=== PATIENT | male | born 1945 | race Caucasian/White ===

== ENCOUNTER 2020-03-19 22:16 | Emergency (ER) | payer MEDICARE ==
--- NOTE | 2020-03-19 22:28 | EDM.PDOCBH ---
<OfficerMerlin - Last Filed: 03/20/20 00:40> ED HPI GENERAL MEDICAL PROBLEM - General Stated Complaint: MENTAL HEALTH EVAL Time Seen by Provider: 03/19/20 22:21 Source of Information: Reports: Patient, Police, RN Notes Reviewed History Limitations: Reports: Combative/Threatening - History of Present Illness INITIAL COMMENTS - FREE TEXT/NARRATIVE: 74-year-old gentleman presents emergency department today via law enforcement for mental health evaluation. He does admit that he wanted to kill his and he wants to kill himself. Per report from law enforcement he made these threats to his she became scared called law enforcement who then arrived evaluated him on scene felt he was unstable brought him to the emergency department for further evaluation. He is somewhat combative and threatening he does cooperate with the exam but he called me a "ASShole and told me to stop asking stupid fucking questions" - Related Data Allergies Allergy/AdvReac Type Severity Reaction Status Date / Time No Known Allergies Allergy Verified 03/19/20 23:12 Home Meds: Home Meds Apixaban [Eliquis] 5 mg PO BID 03/20/20 [History] Clopidogrel Bisulfate [Clopidogrel] 75 mg PO DAILY 03/20/20 [History] Furosemide 40 mg PO DAILY 03/20/20 [History] Hydrocodone/Acetaminophen [Hydrocodon-Acetaminoph 7.5-325] 1 - 2 tab PO Q4H PRN 03/20/20 [History] Isosorbide Mononitrate [Isosorbide Mononitrate ER] 60 mg PO DAILY 03/20/20 [ History] Nitroglycerin 0.4 mg SL ASDIRECTED PRN 03/20/20 [History] SUMAtriptan [Imitrex] 50 mg PO ASDIRECTED PRN 03/20/20 [History] Tamsulosin HCl 0.4 mg PO BID 03/20/20 [History] amLODIPine Besylate [Amlodipine Besylate] 5 mg PO DAILY 03/20/20 [History] atorvaSTATin Calcium [Atorvastatin Calcium] 40 mg PO BEDTIME 03/20/20 [History] buPROPion HCL [Bupropion Xl] 150 mg PO DAILY 03/20/20 [History] lisinopriL [Lisinopril] 10 mg PO DAILY 03/20/20 [History] traMADol HCl [Tramadol HCl] 50 - 100 mg PO QID PRN 03/20/20 [History] Past Medical History HEENT History: Reports: Cataract, Glaucoma, Macular Degeneration Cardiovascular History: Reports: Afib, CAD, High Cholesterol, Hypertension, [place], PVD, Other (See Below) (anticoagulated) Musculoskeletal History: Reports: Back Pain, Chronic Neurological History: Reports: Migraines, Other (See Below) Social & Family History - Tobacco Use Smoking Status *Q: Current Every Day Smoker ED ROS GENERAL - Review of Systems Review Of Systems: Unable To Obtain Reason Not Obtained: Psychotic unstable ED EXAM, BEHAVIORAL HEALTH - Physical Exam Exam: See Below Exam Limited By: Combative/Threatening General Appearance: Alert, Mild Distress (Current) Respiratory/Chest: No Respiratory Distress, Lungs Clear, Normal Breath Sounds Cardiovascular: Regular Rate, Rhythm, No Murmur Psychiatric: Agitated, Poor Eye Contact, Homicidal Thoughts, Suicidal Plan, Suicidal Thoughts COURSE, BEHAVIORAL HEALTH COMP - Course Vital Signs: Last Vital Signs Temp 96.7 F L 03/19/20 22:46 Pulse 90 03/19/20 22:46 Resp 16 03/19/20 22:46 BP 109/76 03/19/20 22:46 Pulse Ox 96 03/19/20 22:46 Orders, Labs, Meds: Laboratory Tests 03/19/20 03/19/20 03/19/20 Range/Units 22:25 22:38 22:38 WBC 8.5 (4.5-11.0) K/uL RBC 4.19 L (4.30-5.90) M/uL Hgb 14.4 (12.0-15.0) g/dL Hct 41.2 (40.0-54.0) % MCV 98 (80-98) fL MCH 34 H (27-31) pg MCHC 35 (32-36) % Plt Count 233 (150-400) K/uL Neut % (Auto) 70 H (36-66) % Lymph % (Auto) 15 L (24-44) % Sau[place] % (Auto) 13 H (2-6) % Eos % (Auto) 1 L (2-4) % Baso % (Auto) 1 (0-1) % PT (9.5-12.0) sec INR (0.80-1.20) Sodium 135 L (140-148) mmol/L Potassium 3.3 L (3.6-5.2) mmol/L Chloride 100 (100-108) mmol/L Carbon Dioxide 23 (21-32) mmol/L Anion Gap 15.3 H (5.0-14.0) mmol/L BUN 17 (7-18) mg/dL Creatinine 0.9 (0.8-1.3) mg/dL Est Cr Clr Drug Dosing 70.92 mL/min Estimated GFR (MDRD) > 60 (>60) Glucose 101 (74-106) mg/dL Calcium 8.2 L (8.5-10.1) mg/dL Total Bilirubin 0.8 (0.2-1.0) mg/dL AST 51 H (15-37) U/L ALT 47 (12-78) U/L Alkaline Phosphatase 110 (46-116) U/L Total Protein 7.3 (6.4-8.2) g/dL Albumin 3.3 L (3.4-5.0) g/dL Globulin 4.0 H (2.3-3.5) g/dL Albumin/Globulin Ratio 0.8 L (1.2-2.2) TSH, Ultra Sensitive (0.358-3.740) uIU/mL Urine Color (YELLOW) Urine Appearance (CLEAR) Urine pH (5.0-8.0) Ur Specific Anderson (1.008-1.030) Urine Protein (NEGATIVE) mg/dL Urine Glucose (UA) (NEGATIVE) mg/dL Urine Ketones (NEGATIVE) mg/dL Urine Occult Blood (NEGATIVE) Urine Nitrite (NEGATIVE) Urine Bilirubin (NEGATIVE) Urine Urobilinogen (0.2-1.0) EU/dL Ur Leukocyte Esterase (NEGATIVE) Urine RBC (0-5) Urine WBC (0-5) Ur Epithelial Cells Amorphous Sediment Urine Bacteria Urine Mucus Salicylates 5.3 (2.0-20.0) mg/dL Urine Opiates Screen (NEGATIVE) Ur Oxycodone Screen (NEGATIVE) Urine Methadone Screen (NEGATIVE) Ur Propoxyphene Screen (NEGATIVE) Acetaminophen 0.0 L (10.0-30.0) ug/mL Ur Barbiturates Screen (NEGATIVE) Ur Tricyclics Screen (NEGATIVE) Ur Phencyclidine Scrn (NEGATIVE) Ur Amphetamine Screen (NEGATIVE) U Methamphetamines Scrn (NEGATIVE) Urine MDMA Screen (NEGATIVE) U Benzodiazepines Scrn (NEGATIVE) U Cocaine Metab Screen (NEGATIVE) U Marijuana (THC) Screen (NEGATIVE) Ethyl Alcohol mg/dL 03/19/20 03/20/20 03/20/20 Range/Units 22:38 00:26 00:26 WBC (4.5-11.0) K/uL RBC (4.30-5.90) M/uL Hgb (12.0-15.0) g/dL Hct (40.0-54.0) % MCV (80-98) fL MCH (27-31) pg MCHC (32-36) % Plt Count (150-400) K/uL Neut % (Auto) (36-66) % Lymph % (Auto) (24-44) % Sauk % (Auto) (2-6) % Eos % (Auto) (2-4) % Baso % (Auto) (0-1) % PT (9.5-12.0) sec INR (0.80-1.20) Sodium (140-148) mmol/L Potassium (3.6-5.2) mmol/L Chloride (100-108) mmol/L Carbon Dioxide (21-32) mmol/L Anion Gap (5.0-14.0) mmol/L BUN (7-18) mg/dL Creatinine (0.8-1.3) mg/dL Est Cr Clr Drug Dosing mL/min Estimated GFR (MDRD) (>60) Glucose (74-106) mg/dL Calcium (8.5-10.1) mg/dL Total Bilirubin (0.2-1.0) mg/dL AST (15-37) U/L ALT (12-78) U/L Alkaline Phosphatase (46-116) U/L Total Protein (6.4-8.2) g/dL Albumin (3.4-5.0) g/dL Globulin (2.3-3.5) g/dL Albumin/Globulin Ratio (1.2-2.2) TSH, Ultra Sensitive (0.358-3.740) uIU/mL Urine Color Caroline A (YELLOW) Urine Appearance Clear (CLEAR) Urine pH 5.5 (5.0-8.0) Ur Specific Anderson >= 1.030 (1.008-1.030) Urine Protein 30 H (NEGATIVE) mg/dL Urine Glucose (UA) Negative (NEGATIVE) mg/dL Urine Ketones 15 H (NEGATIVE) mg/dL Urine Occult Blood Negative (NEGATIVE) Urine Nitrite Negative (NEGATIVE) Urine Bilirubin Small H (NEGATIVE) Urine Urobilinogen 1.0 (0.2-1.0) EU/dL Ur Leukocyte Esterase Negative (NEGATIVE) Urine RBC 0-5 (0-5) Urine WBC Not seen (0-5) Ur Epithelial Cells Not seen Amorphous Sediment Many Urine Bacteria Not seen Urine Mucus Not seen Salicylates (2.0-20.0) mg/dL Urine Opiates Screen Negative (NEGATIVE) Ur Oxycodone Screen Negative (NEGATIVE) Urine Methadone Screen Negative (NEGATIVE) Ur Propoxyphene Screen Negative (NEGATIVE) Acetaminophen (10.0-30.0) ug/mL Ur Barbiturates Screen Negative (NEGATIVE) Ur Tricyclics Screen Negative (NEGATIVE) Ur Phencyclidine Scrn Negative (NEGATIVE) Ur Amphetamine Screen Negative (NEGATIVE) U Methamphetamines Scrn Negative (NEGATIVE) Urine MDMA Screen Negative (NEGATIVE) U Benzodiazepines Scrn Negative (NEGATIVE) U Cocaine Metab Screen Negative (NEGATIVE) U Marijuana (THC) Screen Presumptive positive H (NEGATIVE) Ethyl Alcohol < 3 mg/dL 03/20/20 03/20/20 Range/Units 00:50 06:56 WBC (4.5-11.0) K/uL RBC (4.30-5.90) M/uL Hgb (12.0-15.0) g/dL Hct (40.0-54.0) % MCV (80-98) fL MCH (27-31) pg MCHC (32-36) % Plt Count (150-400) K/uL Neut % (Auto) (36-66) % Lymph % (Auto) (24-44) % Sau[place] % (Auto) (2-6) % Eos % (Auto) (2-4) % Baso % (Auto) (0-1) % PT 10.5 (9.5-12.0) sec INR 0.97 (0.80-1.20) Sodium (140-148) mmol/L Potassium (3.6-5.2) mmol/L Chloride (100-108) mmol/L Carbon Dioxide (21-32) mmol/L Anion Gap (5.0-14.0) mmol/L BUN (7-18) mg/dL Creatinine (0.8-1.3) mg/dL Est Cr Clr Drug Dosing mL/min Estimated GFR (MDRD) (>60) Glucose (74-106) mg/dL Calcium (8.5-10.1) mg/dL Total Bilirubin (0.2-1.0) mg/dL AST (15-37) U/L ALT (12-78) U/L Alkaline Phosphatase (46-116) U/L Total Protein (6.4-8.2) g/dL Albumin (3.4-5.0) g/dL Globulin (2.3-3.5) g/dL Albumin/Globulin Ratio (1.2-2.2) TSH, Ultra Sensitive 1.913 (0.358-3.740) uIU/mL Urine Color (YELLOW) Urine Appearance (CLEAR) Urine pH (5.0-8.0) Ur Specific Anderson (1.008-1.030) Urine Protein (NEGATIVE) mg/dL Urine Glucose (UA) (NEGATIVE) mg/dL Urine Ketones (NEGATIVE) mg/dL Urine Occult Blood (NEGATIVE) Urine Nitrite (NEGATIVE) Urine Bilirubin (NEGATIVE) Urine Urobilinogen (0.2-1.0) EU/dL Ur Leukocyte Esterase (NEGATIVE) Urine RBC (0-5) Urine WBC (0-5) Ur Epithelial Cells Amorphous Sediment Urine Bacteria Urine Mucus Salicylates (2.0-20.0) mg/dL Urine Opiates Screen (NEGATIVE) Ur Oxycodone Screen (NEGATIVE) Urine Methadone Screen (NEGATIVE) Ur Propoxyphene Screen (NEGATIVE) Acetaminophen (10.0-30.0) ug/mL Ur Barbiturates Screen (NEGATIVE) Ur Tricyclics Screen (NEGATIVE) Ur Phencyclidine Scrn (NEGATIVE) Ur Amphetamine Screen (NEGATIVE) U Methamphetamines Scrn (NEGATIVE) Urine MDMA Screen (NEGATIVE) U Benzodiazepines Scrn (NEGATIVE) U Cocaine Metab Screen (NEGATIVE) U Marijuana (THC) Screen (NEGATIVE) Ethyl Alcohol mg/dL Medications Discontinued Medications Generic Name Dose Route Start Last Admin Trade Name Freq PRN Reason Stop Dose Admin Lorazepam 1 mg 03/19/20 23:21 03/19/20 23:33 Ativan PO 03/19/20 23:22 1 mg ONETIME ONE Administration Lorazepam 1 mg 03/20/20 04:26 03/20/20 04:36 Ativan PO 03/20/20 04:27 1 mg ONETIME ONE Administration Olanzapine 10 mg 03/20/20 00:56 03/20/20 04:35 Zyprexa PO 03/20/20 00:57 10 mg ONETIME ONE Administration Olanzapine Confirm 03/20/20 04:32 03/20/20 04:36 Zyprexa Administered 03/20/20 04:33 Not Given Dose 10 mg .ROUTE .STK-MED ONE Departure - Departure Disposition: Home, Self-Care 01 Clinical Impression: Emotional crisis, Suicidal ideation - Discharge Information Instructions: Suicidal Feelings: How to Help Yourself Referrals: PCP,None [Primary Care Provider] - Forms: ED Department Discharge Care Plan Goals: Try to schedule an appointment with Dr. Mcpherson next week to discuss your anxiety and anger issues. He can also answer issues of concerns of onset of dementia and chronic pain questions. Sepsis Event Note - Focused Exam Date Exam was Performed: 03/20/20 Time Exam was Performed: 00:40 <Amrik Maloney D - Last Filed: 03/20/20 15:06> COURSE, BEHAVIORAL HEALTH COMP - Course Re-Assessment/Re-Exam: Patient care turned over from Officer pending placement. Patient woke up and was fairly cooperative, still in attitude but no longer suicidal or homicidal. His came back and they had a long discussion, she decided to take him home and they will make an appointment next week with your primary provider to discuss his anxiety and concerns. Return sooner if worsening. Departure - Departure Time of Disposition: 13:13 Sepsis Event Note - Focused Exam Date Exam was Performed: 03/20/20 Time Exam was Performed: 15:05
[2020-03-19] MEDS ORDERED: LORazepam 1 MG Tab PO ONE (23:21)
[2020-03-20] MEDS ORDERED: OLANZapine 5 MG Tab PO ONE (00:56)
--- NOTE | 2020-03-20 01:36 | CRLCT ---
INDICATION: New confusion TECHNIQUE: CT Head without i.v. contrast. COMPARISON: None FINDINGS: CSF space: Unremarkable for age. Brain: No evidence of mass, acute infarction or hemorrhage is seen. No mass-effect or midline shift is seen. Mild diffuse cortical atrophy is noted. The brain parenchyma is otherwise normal in appearance with preservation of the charlton-white matter junction. Calvarium: The visualized paranasal sinuses are well aerated. The mastoid air cells are clear. The visualized orbits are grossly unremarkable. The calvarium is unremarkable in appearance with no fractures identified. IMPRESSION: 1. No evidence of acute infarction, intracranial hemorrhage, or mass-effect seen. Please note that all CT scans at this facility use dose modulation, iterative reconstruction, and/or weight-based dosing when appropriate to reduce radiation dose to as low as reasonably achievable. Dictated by: Vignesh Rao MD @ 03/20/2020 01:34:18 (Electronically Signed)
[2020-03-20] MEDS ORDERED: LORazepam 1 MG Tab PO ONE (04:26)
[2020-03-20] MEDS ORDERED: OLANZapine 5 MG Tab ONE (04:32)
== END 2020-03-20 13:13 | disposition home or self-care (01) ==
LOC: JP.ED 22:16
DX: F43.20 Adjustment disorder, unspecified (principal); R45.851 Suicidal ideations; I48.91 Unspecified atrial fibrillation; I25.10 Atherosclerotic heart disease of native coronary artery without angina pectoris; E78.00 Pure hypercholesterolemia, unspecified; I10 Essential (primary) hypertension; I25.2 Old myocardial infarction; Z79.02 Long term (current) use of antithrombotics/antiplatelets; Z79.899 Other long term (current) drug therapy
CPT/HCPCS: 36415; 70450; 80053; 80305; 80307; 81001; 84443; 85025; 85610; 99284; 99285; A9270

== ENCOUNTER 2020-04-05 09:19 | Emergency (ER) | payer MEDICARE ==
--- NOTE | 2020-04-05 10:06 | EDM.PDOCBH ---
ED HPI GENERAL MEDICAL PROBLEM - General Chief Complaint: Behavioral/Psych Stated Complaint: EVEL Time Seen by Provider: 04/05/20 09:50 Source of Information: Reports: Patient, Provider History Limitations: Reports: Altered Mental Status - History of Present Illness INITIAL COMMENTS - FREE TEXT/NARRATIVE: 74-year-old male with a worsening manic state over the past week, he was in the emergency room 2 weeks ago agitated and threatening but calm down enough to try to go home and follow-up with his primary provider. Apparently he was started on some new medication for bipolar disorder, it is unclear if he is taking it appropriately. Over the past 24 to 48 hours, despite his children coming to help, his condition has worsened and he has become threatening to his family, won't stop talking, will not sleep, and is in a prolonged manic state. He is threatening to hurt his and his children but has not been violent. He was brought in by law enforcement after they tried to talk him down for an hour and a half and were unsuccessful. He is much more agitated and impatient than when I saw him 2 weeks ago. He has no physical complaints other than occasional palpitations, but he does have chronic atrial fibrillation. Onset: Unknown/Unsure Associated Symptoms: Reports: Confusion. Denies: Nausea/Vomiting, Shortness of Breath - Related Data Allergies Allergy/AdvReac Type Severity Reaction Status Date / Time No Known Allergies Allergy Verified 04/05/20 09:50 Home Meds: Home Meds Apixaban [Eliquis] 5 mg PO BID 03/20/20 [History] Clopidogrel Bisulfate [Clopidogrel] 75 mg PO DAILY 03/20/20 [History] Furosemide 40 mg PO DAILY 03/20/20 [History] Isosorbide Mononitrate [Isosorbide Mononitrate ER] 60 mg PO DAILY 03/20/20 [ History] Nitroglycerin 0.4 mg SL ASDIRECTED PRN 03/20/20 [History] SUMAtriptan [Imitrex] 50 mg PO ASDIRECTED PRN 03/20/20 [History] Tamsulosin HCl 0.4 mg PO BID 03/20/20 [History] amLODIPine Besylate [Amlodipine Besylate] 5 mg PO DAILY 03/20/20 [History] atorvaSTATin Calcium [Atorvastatin Calcium] 40 mg PO BEDTIME 03/20/20 [History] buPROPion HCL [Bupropion Xl] 150 mg PO DAILY 03/20/20 [History] lisinopriL [Lisinopril] 10 mg PO DAILY 03/20/20 [History] traMADol HCl [Tramadol HCl] 50 - 100 mg PO QID PRN 03/20/20 [History] Celecoxib [CeleBREX] 200 mg PO DAILY 04/05/20 [History] Divalproex Sodium 500 mg PO BID 04/05/20 [History] Latanoprost [Xalatan] 2.5 ml .XX DAILY 04/05/20 [History] OLANZapine [ZyPREXA] 2.5 mg PO DAILY 04/05/20 [History] Sennosides [Senna] 8.6 mg PO DAILY 04/05/20 [History] oxyCODONE 1 tab PO Q12HR PRN 04/05/20 [History] Past Medical History HEENT History: Reports: Cataract, Glaucoma, Macular Degeneration Cardiovascular History: Reports: Afib, CAD, High Cholesterol, Hypertension, [place], PVD, Other (See Below) Other Cardiovascular History: peripheral vascular disease Respiratory History: Reports: Sleep Apnea Other Respiratory History: uses CPAP Genitourinary History: Reports: BPH Musculoskeletal History: Reports: Back Pain, Chronic Other Musculoskeletal History: spinal stenosis Neurological History: Reports: Migraines, Other (See Below) Other Neuro History: bipolar disease dx in the last month Psychiatric History: Reports: Dementia Hematologic History: Reports: Anemia, Iron Deficiency - Past Surgical History HEENT Surgical History: Reports: Oral Surgery Cardiovascular Surgical History: Reports: Coronary Artery Stent Other Cardiovascular Surgeries/Procedures: iliac artery stent Musculoskeletal Surgical History: Reports: Other (See Below) Other Musculoskeletal Surgeries/Procedures:: lumbar laminectomy Social & Family History - Family History Family Medical History: Unobtainable - Tobacco Use Smoking Status *Q: Current Every Day Smoker Years of Tobacco use: 50 Packs/Tins Daily: 0.7 - Caffeine Use Caffeine Use: Reports: Coffee - Recreational Drug Use Recreational Drug Use: Yes Drug Use in Last 12 Months: Yes Recreational Drug Type: Reports: Marijuana/Hashish Recreational Drug Use Frequency: Daily ED ROS GENERAL - Review of Systems Review Of Systems: See Below Constitutional: Denies: Fever, Chills HEENT: Denies: Vision Change Respiratory: Reports: Cough (Smoker's cough). Denies: Shortness of Breath Cardiovascular: Reports: Palpitations (Tends to get palpitations when excited) GI/Abdominal: Denies: Nausea, Vomiting Neurological: Denies: Dizziness, Headache Psychiatric: Reports: Anxiety, Homicidal Ideation, Suicidal Ideation ED EXAM, BEHAVIORAL HEALTH - Physical Exam Exam: See Below Text/Narrative:: Patient is behaving very manic, will not stop talking with disjointed thought process but his memory is intact and he does answer questions appropriately but then quickly goes on to a different tangent of thought process. Exam Limited By: No Limitations General Appearance: Alert, No Apparent Distress Head: Atraumatic Neck: Non-Tender Respiratory/Chest: Wheezing (Patient has a few scattered expiratory wheezes but overall clear lungs and good air movement) Cardiovascular: Tachycardia, Irregularly Irregular GI/Abdominal: Non-Tender Neurological: Alert, No Motor/Sensory Deficits, Oriented x 3 Psychiatric: Agitated, Flight of Ideas Skin Exam: Warm, Dry COURSE, BEHAVIORAL HEALTH COMP - Course Vital Signs: Last Vital Signs Temp 97.6 F 04/05/20 13:55 Pulse 89 04/05/20 13:55 Resp 16 04/05/20 13:55 BP 130/64 04/05/20 11:45 Pulse Ox 98 04/05/20 11:45 Orders, Labs, Meds: Laboratory Tests 04/05/20 04/05/20 04/05/20 Range/Units 10:11 10:11 10:11 WBC 9.2 (4.5-11.0) K/uL RBC 4.51 (4.30-5.90) M/uL Hgb 14.8 (12.0-15.0) g/dL Hct 45.1 (40.0-54.0) % MCV 100 H (80-98) fL MCH 33 H (27-31) pg MCHC 33 (32-36) % Plt Count 283 (150-400) K/uL Neut % (Auto) 68 H (36-66) % Lymph % (Auto) 17 L (24-44) % Blanco % (Auto) 13 H (2-6) % Eos % (Auto) 1 L (2-4) % Baso % (Auto) 0 (0-1) % Sodium 141 (140-148) mmol/L Potassium 3.8 (3.6-5.2) mmol/L Chloride 103 (100-108) mmol/L Carbon Dioxide 26 (21-32) mmol/L Anion Gap 12.0 (5.0-14.0) mmol/L BUN 21 H (7-18) mg/dL Creatinine 1.1 (0.8-1.3) mg/dL Est Cr Clr Drug Dosing 54.25 mL/min Estimated GFR (MDRD) > 60 (>60) Glucose 139 H (74-106) mg/dL Calcium 8.9 (8.5-10.1) mg/dL Ethyl Alcohol < 3 mg/dL Re-Assessment/Re-Exam: We will try to get the record of his new medications that were started recently , will check a CBC BMP and EtOH but the rest of the labs from 2 weeks ago I do not feel need to be repeated. He will need a 72-hour hold for stabilization. EtOH was 0, labs are stable from 2 weeks ago. He was declined at [facility] because of his marijuana use. Over the first 3 hours of his ER stay he slowly improved and had less stef, likely because his medications were starting to help. He was still irritable and had a short fuse but was much more cooperative and less distracted and disjointed. Still awaiting placement into a behavioral health facility. Patient was accepted for admission at [facility], a 72-hour hold was written. Departure - Departure Time of Disposition: 13:56 Disposition: DC/Tfer to Medicaid [facility] Clinical Impression: Suicidal ideation, Bipolar disorder, manic, moderate - Discharge Information Referrals: Eligio Mcpherson MD [Primary Care Provider] - Forms: ED Department Discharge Care Plan Goals: Patient is to be transferred to [facility] for inpatient evaluation and treatment of unstable bipolar disorder with suicidal and homicidal ideation. 72-hour hold was written. Sepsis Event Note - Focused Exam Vital Signs: Vital Signs Temp Pulse Resp BP Pulse Ox 04/05/20 13:55 97.6 F 89 16 04/05/20 11:45 76 16 130/64 98 04/05/20 09:37 98.2 F 118 H 18 141/92 H 95 Date Exam was Performed: 04/05/20 Time Exam was Performed: 16:15
== END 2020-04-05 13:45 ==
LOC: JP.ED 09:19
DX: F31.12 Bipolar disorder, current episode manic without psychotic features, moderate (principal); I48.91 Unspecified atrial fibrillation; I25.10 Atherosclerotic heart disease of native coronary artery without angina pectoris; E78.00 Pure hypercholesterolemia, unspecified; I25.2 Old myocardial infarction; F03.90 Unspecified dementia, unspecified severity, without behavioral disturbance, psychotic disturbance, mood disturbance, and anxiety; F17.210 Nicotine dependence, cigarettes, uncomplicated; Z79.01 Long term (current) use of anticoagulants; Z79.02 Long term (current) use of antithrombotics/antiplatelets; Z79.899 Other long term (current) drug therapy
CPT/HCPCS: 36415; 80048; 80307; 85025; 99285